=== PATIENT | female | born 1960 | race African-American/Black ===

== ENCOUNTER 2017-11-02 17:20 | Emergency (ER) | payer OTHER ==
[~2017-11-02] VITALS: Ht 165.1 cm; Wt 81.5 kg
[~2017-11-02 17:20] MED LIST: AMOX250C4 PO; ASPI-556 PO; CALC-1085 PO; CLOM50 PO; GABA-531 PO; INSLAN SQ; INSU100V SQ; METF500T4 PO; METH10TA2 PO; NORT10 PO; OMEP20 PO; SIMV-260 PO; TYL3 PO; VITA1CAP PO
[2017-11-02 17:47] LABS: GLUCOSE,POINT OF CARE 367 MG/DL (70-110)
[2017-11-02 18:53] VITALS: BP 132/78
== END 2017-11-02 19:35 | disposition home or self-care (01) ==
LOC: EMS 17:20
DX: R04.0 Epistaxis (principal); I10 Essential (primary) hypertension; E78.00 Pure hypercholesterolemia, unspecified; K21.9 Gastro-esophageal reflux disease without esophagitis; E11.9 Type 2 diabetes mellitus without complications; F11.90 Opioid use, unspecified, uncomplicated; F17.210 Nicotine dependence, cigarettes, uncomplicated; Z79.4 Long term (current) use of insulin
CPT/HCPCS: 82962; 99282

== ENCOUNTER 2023-12-29 10:04 | Day surgery (SDC) | payer OTHER ==
[~2023-12-29] VITALS: Ht 165.1 cm; Wt 86.4 kg
[~2023-12-29 10:04] MED LIST changes: +AMLO5TAB66 PO; -AMOX250C4 PO; +ASPI-1444 PO; -ASPI-556 PO; +ATOR40TA71 PO; -CALC-1085 PO; +CHOL25TA4 PO; -CLOM50 PO; +DULA0.75 SQ; +FLUT10.67 IH; +FURO40TA5 PO; -GABA-531 PO; -INSU100V SQ; -METF500T4 PO; -METH10TA2 PO; +METO-408 PO; -NORT10 PO; +OMEP10 PO; -OMEP20 PO; +OMEP20CA12 PO; -SIMV-260 PO; +SODIUM CHLORIDE 0.9% 1,000 ML ONE; -TYL3 PO; +VERA120T91 PO; -VITA1CAP PO
[2023-12-29] MEDS: SODIUM CHLORIDE 0.9% 1,000 ML IV ONE (11:08)
[2023-12-29] MEDS ORDERED: SODIUM CHLORIDE 0.9% 1,000 ML ONE (11:14)
[2023-12-29 11:26] LABS: GLUCOMETER DEV NAME(LOC) SDS.; GLUCOSE,POINT OF CARE 64 MG/DL (70-110)
[2023-12-29] MEDS ORDERED: LIDOCAINE/PF 2% 5 ML VIAL IM ONE (12:00)
[2023-12-29] MEDS ORDERED: PROPOFOL 1% 20 ML VIAL IVP ONE (12:00)
[2023-12-29] MEDS ORDERED: OXYGEN THERAPY IH SCH (20:00)
[2023-12-30 05:41] LABS: GLUCOMETER DEV NAME(LOC) SDS.; GLUCOSE,POINT OF CARE 112 MG/DL (70-110)
== END 2023-12-29 13:05 | disposition home or self-care (01) ==
LOC: SURGERY 10:04
PROVIDERS: ATTEND Specialist
DX: D12.4 Benign neoplasm of descending colon (principal); I10 Essential (primary) hypertension; Z90.49 Acquired absence of other specified parts of digestive tract; Z90.710 Acquired absence of both cervix and uterus; Z98.890 Other specified postprocedural states; Z79.899 Other long term (current) drug therapy
CPT/HCPCS: 45385; 88305; 82962; C1769; J2704; J3490; J7030